=== PATIENT | male | born 1975 | race Caucasian/White ===

== ENCOUNTER 2024-12-09 17:41 | Emergency (ER) | payer MEDICAID ==
[~2024-12-09] VITALS: Ht 172.7 cm; Wt 64.0 kg
[2024-12-09 17:45] VITALS: O2SAT 96
[2024-12-09] MEDS: IBUPROFEN 800MG TABLET PO ONE (20:34)
[2024-12-09] MEDS ORDERED: IBUP-2030 MT (20:58)
[2024-12-09 21:20] VITALS: BP 152/94; PULSE 75; RESP 16; TEMP 36.6; O2SAT 98
== END 2024-12-09 21:30 | disposition home or self-care (01) ==
LOC: ER 17:41
DX: S20.211A Contusion of right front wall of thorax, initial encounter (principal); Y08.89XA Assault by other specified means, initial encounter; Y93.89 Activity, other specified; Y92.89 Other specified places as the place of occurrence of the external cause; Y99.8 Other external cause status
CPT/HCPCS: 71250; 74176; 99284

== ENCOUNTER 2024-12-18 00:50 | Emergency (ER) | payer MEDICAID ==
[~2024-12-18] VITALS: Ht 170.2 cm; Wt 64.0 kg
[~2024-12-18 00:50] MED LIST: IBUP-2030 MT
[2024-12-18 00:54] VITALS: TEMP 36.7; O2SAT 98
[2024-12-18 01:25] LABS: BASOPHILS % 0.6 % (0.0-2.0); EOSINOPHILS % 0.6 % (0.0-5.0); HEMATOCRIT. 39.5 % (42.0-52.0); HEMOGLOBIN. 13.6 g/dL (14.0-18.0); LYMPHOCYTES % 23.4 % (20.0-50.0); MEAN PLATELET VOLUME 7.7 fl (7.4-10.4); MONOCYTES % 7.3 % (2.0-8.0); NEUTROPHILS % 68.1 % (40.0-76.0); PLATELET 177 x1000/uL (130-400); RED BLOOD CELL COUNT 3.74 mill/uL (4.7-6.1); RED CELL DISTRIBUTION WIDTH 12.7 % (11.6-14.6)
[2024-12-18 01:39] LABS: CREATININE 0.7 mg/dL (0.6-1.3); UREA NITROGEN BLOOD 8 mg/dL (9-23)
[2024-12-18 01:41] LABS: ASPARTATE AMINOTRANSFERASE 42 IU/L (<34); BILIRUBIN DIRECT 0.1 mg/dL (<=3.0); BILIRUBIN TOTAL 0.4 mg/dL (0.1-1.0); PROTEIN TOTAL 7.3 g/dL (6.0-8.3)
[2024-12-18] MEDS: ONDANSETRON HCL 4MG/2ML INJ IM ONE (01:47)
[2024-12-18 03:01] VITALS: BP 105/54; PULSE 70; RESP 16; O2SAT 99
== END 2024-12-18 03:04 | disposition home or self-care (01) ==
LOC: ER 00:50
DX: R11.0 Nausea (principal); D50.9 Iron deficiency anemia, unspecified; F10.10 Alcohol abuse, uncomplicated
CPT/HCPCS: 80076; 80048; 80320; 83690; 85025; 36415; 96372; 99283; J2405; G0480